=== PATIENT | male | born 1960 | race Asian ===

== ENCOUNTER → 2025-02-03 07:50 | Outpatient (REF) | payer OTHER, SELFPAY | LOC: RAD 07:50 | PROVIDERS: ATTENDING PHYSICIAN Surgery Vascular Surgery; FAMILY PHYSICIAN Internal Medicine Geriatric Medicine | DX: I71.019 Dissection of thoracic aorta, unspecified (principal) | CPT/HCPCS: 71275; 74174; Q9967 ==